=== PATIENT | male | born 1960 | race Hispanic/Latino ===

== ENCOUNTER 2017-11-30 08:23 | Day surgery (SDC) | payer OTHER ==
[2017-11-26 10:15] VITALS: BMI 27.3
[2017-11-30] MEDS ORDERED: ePHEDrine 50 mg/ml Inj ONE (12:08)
[2017-11-30] MEDS ORDERED: Midazolam 2 MG/2 ML VIAL ONE (12:08)
[2017-11-30] MEDS ORDERED: Succinylcholine 200 mg/10 ml Inj IV ONE (12:09)
[2017-11-30] MEDS ORDERED: Rocuronium 10 mg/ml (5 ml) ONE (12:09)
[2017-11-30] MEDS ORDERED: Ropivacaine 0.5% 30ML IV ONE (12:39)
[2017-11-30] MEDS ORDERED: Lidocaine 2% w Epi 1:100,000 Inj IJ ONE (12:43)
[2017-11-30] MEDS ORDERED: Lactated Ringer's 1,000 ML IV ONE ×2 (14:28→15:00)
[2017-11-30] MEDS ORDERED: Liquid Adhesive TOP ONE (14:36)
[2017-11-30] MEDS ORDERED: Neostigmine Methylsulfate 3mg/3ml Syringe IV ONE (14:39)
[2017-11-30] MEDS ORDERED: Neostigmine Methylsulfate 2 MG/2 ML ML IV ONE (14:41)
[2017-11-30] MEDS ORDERED: Propofol 10 mg/ml Inj (20 ML) ONE (14:55)
--- NOTE | 2017-11-30 15:06 | PCM.SURG1 ---
Surgeon's Initial Post Op Note - Surgeon's Notes Surgeon: Samuel Gottlieb MD Acute Care Certified Nursing Assistant: Butch Wu PA-C; Dada Hayward DPM Type of Anesthesia: General Endo Pre-Operative Diagnosis: Right shoulder repeat RTC and labral tear, AC joint arthritis Operative Findings: see op report Post-Operative Diagnosis: same as pre-op dx Operation Performed: Right shoulder arthroscopy, extensive debriedment, subacromial decompression, distal clavulectomy, mini open subpec biceps tenodesis Specimen/Specimens Removed: none Estimated Blood Loss: EBL {In ML}: 5 Date of Surgery/Procedure: 11/30/17 Time of Surgery/Procedure: 13:30
[2017-11-30] MEDS ORDERED: Oxycodone/Acetaminophen 5/325 mg Tab PO PRN (15:07)
[2017-11-30] MEDS ORDERED: HYDROmorphone 0.5 mg/0.5 ml ISec IVP PRN (15:22)
--- NOTE | 2017-11-30 15:25 | PCM.ANESB1 ---
Interscalene Block - Brachial Plexus Date of Procedure: 11/30/17 Procedure Performed: Interscalene Block of Brachial Plexus Right - Procedure Interscalene Block of Brachial Plexus: This procedure was explained to the patient that it is for post-operative pain management. Consent was obtained after a thorough discussion with the patient regarding the benefits and possible complications of local anesthetic block of the Brachial Plexus at the Interscalene area. The patient was brought to the Operating Room and standard monitors were applied. Time out was held with the circulating nurse to confirm the correct surgery and appropriate block. After applying Oxygen by nasal cannula and administering IV Sedation, the patient's head was gently rotated away from the operative shoulder and the anterior scalene groove was carefully palpated. The ultrasound transducer was then applied to the skin in the transverse plane and the brachial plexus was visualized lateral to the carotid artery and in between the anterior and middle scalene muscles. After identification,the anterior lateral portion of the neck was prepped with chloroprep solution. At this point, a # 22 gauge Stimuplex 2 inches insulated needle was inserted into the interscalene groove and directed in a caudal and midline direction. The needle was inserted lateral to the ultrasound transducer in-plane towards the brachial plexus in a [id number] direction. Needle advancement was performed carefully under direct ultrasound visualization. Nerve stimulator was used and twitched of the affected extremity including the hand brachialis muscles, biceps and the deltoid was obtained at a current of __0.3___MA. After repeated negative aspiration,___5__cc of__0/5% Ropivacaine___, were injected and this was followed with __15___cc of _0.5____% Ropivacaine . Under ultrasound guidance the local anesthetics were observed surrounding the roots of the brachial plexus. The needle was removed intact. The patient had stable vital signs, was conscious and in no apparent distress. The patient tolerated the interscalene block of the bracheal plexus well with stable vital signs and was prepared for subsequent surgery.
--- NOTE | 2017-11-30 15:25 | OP ---
PROCEDURE DATE: 11/30/2017 ATTENDING PHYSICIAN: Samuel Gottlieb MD. CROP PRODUCTION ADVISOR: Butch Wu PA-C. PREOPERATIVE DIAGNOSES: 1. Right shoulder partial supraspinatus and infraspinatus tear. 2. Synovitis. 3. Adhesions. 4. Impingement. 5. Acromioclavicular joint arthritis. POSTOPERATIVE DIAGNOSES: 1. Right shoulder extensive synovitis. 2. Partial supraspinatus and infraspinatus tear. 3. Anterior capsule adhesions. 4. Biceps tendon tear. 5. 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 6. Anterior labral tear. 7. Impingement. 8. Multiple subacromial adhesions. 9. Acromioclavicular joint arthritis. PROCEDURE: 1. Right shoulder arthroscopy and complete synovectomy. 2. Extensive debridement. 3. Anterior capsular and subacromial lysis of adhesions. 4. Distal clavicle excision. 5. Subacromial decompression with acromioplasty. 6. Mini-open subpectoral biceps tenodesis. EBL: 5 mL. SPECIMENS: None. CLOSURE: Primary. FLUIDS: See anesthesia sheet. ANTIBIOTICS: See anesthesia sheet. COMPLICATIONS: None. INDICATIONS: After failing a course of nonoperative therapy, the patient elected to undergo the above procedures. In the office the risks and possible complications of the shoulder arthroscopy were discussed in detail with the patient. These risks include, but are not limited to, continued pain, lack of motion, infection, vascular injury, and nerve injury including axillary nerve dysfunction, reflex sympathetic dystrophy, compartment syndrome, limb loss, and . The patient expressed an understanding of the risks and possible benefits of the procedure, and was also made aware of the alternatives to surgery. An informed consent was obtained, and was checked immediately preop. The patient's shoulder injuries requiring surgery are the result of an accident/incident that occurred at work. Procedure 1: The patient was correctly identified in the holding area and the right shoulder was marked with the surgeon's initials. The patient was transported to the operating room and placed in the supine position and general anesthesia and regional interscalene block was used. A preoperative orthopedic examination revealed a passive range of motion of forward flexion 260, 50 degrees of external rotation, and 120 degrees of abduction. Stability examination revealed no instability. Procedure 2: The patient was then placed in a beach chair position utilizing the beach chair positioning device. The patient's head was stabilized and the indicated upper extremity was prepped and draped in the standard surgical fashion. The anatomic structures were outlined with a skin marker, and 1% lidocaine with epinephrine was injected into the posterior, anterior, and lateral portal areas. A #21-gauge spinal needle was placed in the glenohumeral joint from the posterior portal and 10 mL of sterile saline was injected into the glenohumeral joint. Return of fluid indicated correct needle placement into the joint. The needle was then withdrawn and a #11 blade was used to make a 1-cm incision at the posterior portal site. Next, the arthroscopic blunt trocar was inserted into the glenohumeral joint. A #21-gauge spinal needle was placed through the anterior rotator interval, and the anterior portal was made with a #11 blade after the spinal needle was withdrawn. A 7-mm cannula was then inserted after the skin incision was made and the arthroscopic probe was then used to examine the internal structures of the glenohumeral joint. With the shoulder in abducted and externally rotated position, the articular surface of the rotator cuff was visualized. The arthroscope and probe were then switched from posterior to anterior. The posterior labrum, posterior capsule, and biceps anchor reflection was then inspected with the arthroscope in the anterior portal position. Examination of the glenohumeral joint revealed: 1. Extensive synovitis. 2. Partial supraspinatus and infraspinatus tear. 3. Anterior capsular adhesions. 4. Failed SLAP repair and biceps tendon tear. 5. Grade III chondromalacia of glenoid and grade IV chondromalacia of humeral head. 6. Anterior labral tear. Using the probe, the labrum was circumferentially assessed for tear. Tears were note at site of the anterior labrum. Using the 4.0 motorized shaver and radiofrequency probe, the torn edges of the labrum were debrided until stable rim, preventing any further propagation. The radiofrequency device was introduced through the anterior portal and a radiofrequency anterior capsular rotator interval lysis of adhesions was performed. The anterior capsule was released to optimize range of motion. The radiofrequency device was used to provide hemostasis during this procedure. After the lysis of adhesions, passive range of motion measured forward flexion to 180, 70 degrees of external rotation, and 150 degrees of abduction. The full radius shaver was used to mechanically debrided loose chondral edges of the anterosuperior glenoid and posterior humeral head, to a stable border. Extreme care was taken to not disrupt the adjacent chondral surface. The edge of the debrided area was probed to ensure chondral stability. The biceps pathology was addressed with biceps tenodesis. Upon careful arthroscopic evaluation of biceps tendon and its anchor site at the labrum, it was noted to be highly frayed and tears not amenable to repair. Biceps tenotomy was performed using the arthroscopic scissors. Afterwards, a small 2-cm incision was marked within the axillary fold and injected with 2 mL of 1% lidocaine with epinephrine. Skin incision was made using a 15 blade. Deeper dissection was carried out with scissors, and interval between pectoralis major tendon and coracobrachialis. Biceps tendon was identified sitting within the biceps groove. It was removed from the groove and found to be erythematous with intersubstance fraying and tearing. Torn edges of the tendon were incised using 15 blade and a 2.0 FiberLoop was used to whip stitch the tendon. The elbow was taken through flexion and extension to identify the appropriate site of tenodesis within the bicipital groove with proper tensioning of muscle belly. For tenodesis, we used the Arthrex bicortical button. The free ends of FiberLoop were loaded onto the metal cortical button. The diameter of the tendon was measured using the guide. Using appropriate drill bit, bicortical drill hole was made at the top of bicipital groove. Then, using the appropriate size reamer, as determined after measuring the width of biceps tendon, the near cortex was drilled approximately 1.5 cm in depth. The cortical button was loaded on the handle and passed through the drilled hole, then flipped at the far cortex. The biceps tendon was delivered into the drill hole and was sutured and secured with FiberLoop. Normal saline irrigation was used to remove all the debris and loose bodies. Skin edges were brought closer using 2.0 Vicryl sutures and closed 4.0 nylon sutures. Excessive glenohumeral synovitis was cleared with a 4.0 mm full radius shaver. The hypertrophic, erythematous synovium was resected. Hemostasis was maintained with the radiofrequency device. The 4.0 mm straight shaver was introduced through the anterior portal, and the partially torn supraspinatus lesion was debrided. Extreme care was taken to protect the chondral surfaces as well as the substance of the intact tendon. It was noted that greater than 50% of the tendon thickness remained after the debridement. At this point, the arthroscope was withdrawn from the glenohumeral joint and subacromial space was then entered using a blunt trocar. Gentle resistance sweeping against the coracoacromial ligament confirmed proper placement of the sheath and the arthroscope was inserted. A 1-cm incision was made at the inferolateral acromial area to create the lateral portal. Examination of the subacromial space revealed: 1. Extensive bursitis. 2. Multiple subacromial adhesions. 3. Impingement. 4. AC joint arthritis. Visualization of the subacromial space was difficult due to excessive bursitis. A bursectomy was performed using a combination of radiofrequency device as well as a 4.0-mm full radius motorized shaver. The soft tissue on the undersurface of the acromion was debrided utilizing the 4.0-mm full radius shaver and the radiofrequency device was used for hemostasis. At this point, the coracoacromial ligament was released with the radiofrequency device and the acromial branch of the thoracoacromial artery was coagulated with the same instrument. Subacromial decompression was performed with a 4.0-mm conical david using both the medial portal and the "cutting-block" precision acromioplasty technique from the posterior portal. The undersurface of the acromion was resected to a flat, smooth surface to allow unrestricted excursion of the rotator cuff. There were multiples adhesions noted within the subacromial space. Adhesions were found within the anterior, posterior, and lateral gutters. These adhesions were scarred into anterior and posterior portion of rotator cuff limiting range of motion. Using the 4.0-mm motorized shaver and radiofrequency probe, adhesions were debrided and removed. All the bleeding surfaces were coagulated. Afterwards, the shoulder was taken through range of motion and there was a notable improvement in range of motion and unrestrictive excursion of rotator cuff muscle and tendons. After adequate subacromial decompression, attention was then turned to the acromioclavicular joint which was localized using a 21-gauge spinal needle. A single 1-cm incision was placed on the superior aspect of the acromioclavicular joint, and the arthroscope and radiofrequency device were then inserted. Utilizing the radiofrequency device for hemostasis as well as tissue ablation, the perimeter of the distal clavicle was denuded of soft tissue. Care was taken to preserve the superoposterior soft tissue ligamentous attachments to the distal clavicle. A 4.0-mm conical david was introduced through the superior portal and 7 mm of distal clavicle was excised. A 1 mm of medial acromion was also resected. All resected bone was planed to a smooth, flat surface, and was checked by arthroscopic visualization from the superior AC joint portal. The subacromial space was then irrigated with sterile saline, and closure was instituted with sutures. A dressing was placed consisting of Xeroform, 4x4's, ABD pads, and tape. The patient was placed in a sling with an ABD pad in the axilla. The patient was then placed in a supine position and extubated without incident. The patient was transferred to the recovery room in stable condition, having tolerated the procedure well. Postoperatively, the patient will be maintained in an abduction sling, also provided with my rehab protocol, defining the restriction and sling use for 6-8 weeks. Followup in 6 weeks. During this procedure, I was assisted by Butch Wu PA-C., who assisted in positioning the patient on the operating room table as well as transferring the patient from the operating room table to the recovery room stretcher. In addition, Butch Wu PA-C, assisted me during the actual operative procedure by positioning the patient's extremity to allow for easier arthroscopic access to all areas of the joint. The presence of Butch Wu PA-C, as my operative assistant professor of philosophy, was medically necessary to ensure the utmost safety of the patient in the pre, intra-, and postoperative periods. Previous surgery was open rotator cuff repair. Due to the patient's previous procedure(s) performed in this area, this procedure was more difficult than a standard shoulder arthroscopy. This required extra time during prepping and draping, as well as an extended operative time. Because of the added complexity of the revision nature of this procedure, the length of the case was prolonged by 25%. Samuel Gottlieb MD
[2017-11-30 17:12] VITALS: RESP 18
[2017-11-30 18:42] VITALS: TEMP 97
[2017-11-30 19:29] VITALS: BP 140/82; PULSE 84; O2SAT 97
== END 2017-11-30 19:45 | disposition home or self-care (01) ==
LOC: H.OPSURG 08:23
PROVIDERS: ATTEND Orthopaedic Surgery
DX: M75.111 Incomplete rotator cuff tear or rupture of right shoulder, not specified as traumatic (principal); E11.9 Type 2 diabetes mellitus without complications; I10 Essential (primary) hypertension; F32.9 Major depressive disorder, single episode, unspecified; G47.33 Obstructive sleep apnea (adult) (pediatric); M65.811 Other synovitis and tenosynovitis, right shoulder; M75.41 Impingement syndrome of right shoulder; M94.211 Chondromalacia, right shoulder
CPT/HCPCS: 29806; 29821; 29823; 82948; J0171; J0330; J0690; J1170; J2001; J2250; J2405; J2704; J2710; J3010; J7120